=== PATIENT | male | born 1985 | race Caucasian/White ===

== ENCOUNTER 2020-10-23 17:08 | Inpatient (IN) | payer MEDICAID, SELFPAY ==
[~2020-10-23] VITALS: Ht 175.3 cm; Wt 126.6 kg
[2020-10-23] MEDS: KCL 20 mEq in NS 1000 mL 1,000 ML IV SCH (01:00)
[2020-10-23] MEDS: PIPERACILLIN/TAZO 4.5GM/DEX-IS 100 ML IV SCH (01:00)
[2020-10-23 17:11] VITALS: BP_SYST 123
[2020-10-23 19:09] LABS: BASOPHILS # (AUTO) 0.1 K/uL (0.0-0.2); BASOPHILS % (AUTO) 0.8 % (0.0-2.0); EOSINOPHILS # (AUTO) 0.1 K/uL (0.0-0.4); EOSINOPHILS % (AUTO) 0.9 % (0.0-4.0); HEMATOCRIT 42.7 % (36-54); HEMOGLOBIN 14.2 g/dL (14.0-18.0); LYMPHOCYTES # (AUTO) 1.6 K/uL (1.0-5.5); LYMPHOCYTES % (AUTO) 15.7 % (20.5-51.5); MEAN CORPUSCULAR HEMOGLOBIN 29 pg (27-31); MEAN CORPUSCULAR HGB CONC 33 % (32-36); MEAN CORPUSCULAR VOLUME 86 fL (79.0-98.0); MONOCYTES # (AUTO) 0.4 K/uL (0.0-1.0); MONOCYTES % (AUTO) 3.5 % (1.7-9.3); NEUTROPHILS # (AUTO) 7.9 K/uL (1.8-7.7); NEUTROPHILS % (AUTO) 79.1 % (40.0-70.0); PLATELET COUNT (AUTO) 232 K/uL (130-430); RED BLOOD CELL COUNT(AUTO) 4.96 MIL/uL (4.2-6.2); RED CELL DISTRIBUTION WIDTH 13.8 % (9.0-15.0)
[2020-10-23 19:24] LABS: ANION GAP 7 (5-15); CALCIUM 8.5 mg/dL (8.4-11.0); CHLORIDE 99 mmol/L (98-107); CREATININE 0.81 mg/dL (0.55-1.30); GLUCOSE 92 mg/dL (70-99); SODIUM SERUM 133 mmol/L (136-145); UREA NITROGEN, BLOOD 13 mg/dL (8-21)
[2020-10-23 19:30] LABS: GFR AFRICAN AMERICAN 138 mL/min (>90)
[2020-10-23] MEDS ORDERED: POTASSIUM CHLORIDE 20 MEQ/PKT PACKET PO ONE (19:30)
[2020-10-23 19:36] LABS: ALANINE AMINOTRANSFERASE 40 U/L (12-78); ALBUMIN 2.8 g/dL (3.4-4.8); ASPARTATE AMINOTRANSFERASE 44 U/L (10-37); LACTATE DEHYDROGENASE 425 U/L (85-227); TOTAL BILIRUBIN 0.7 mg/dL (0.0-1.0)
[2020-10-23 19:48] LABS: POTASSIUM 2.7 mmol/L (3.5-5.1)
[2020-10-23 20:54] LABS: C-REACTIVE PROTEIN QUANT 23.9 mg/dL (0-0.5)
[2020-10-23] MEDS ORDERED: METF1000 PO (21:50)
[2020-10-23] MEDS ORDERED: ASPI-1393 PO (21:51)
[2020-10-23] MEDS ORDERED: OMEP20CA15 PO (21:51)
[2020-10-23] MEDS ORDERED: FURO-149 PO (21:51)
[2020-10-23] MEDS ORDERED: ALBUTEROL MDI INHALATION 8 GM INH INH PRN (22:45)
[2020-10-23] MEDS ORDERED: ACETAMINOPHEN 325 MG TABLET PO PRN (22:45)
[2020-10-23] MEDS: ASCORBIC ACID 500 MG TABLET PO SCH (22:45)
[2020-10-23 23:12] VITALS: BP_SYST 126
[2020-10-24] VITALS: BP_SYST 114
[2020-10-24] MEDS ORDERED: KCL 20 mEq in NS 1000 mL 1,000 ML IV ONE (00:43)
[2020-10-24] MEDS ORDERED: PIPERACILLIN/TAZOBACTAM 4.5 GM/VIAL (ZOSYN) IV ONE (00:43)
[2020-10-24] MEDS: DEXAMETHASONE SOD PHOSPHATE 10 MG/ML VIAL IVP SCH ×2 (04:35→22:33)
[2020-10-24 04:43] VITALS: BP_SYST 116
[2020-10-24] MEDS: PIPERACILLIN/TAZO 4.5GM/DEX-IS 100 ML IV SCH ×2 (06:06→13:55)
[2020-10-24 07:06] LABS: BASOPHILS % (AUTO) 0.6 % (0.0-2.0); EOSINOPHILS % (AUTO) 0.6 % (0.0-4.0); HEMATOCRIT 39.7 % (36-54); HEMOGLOBIN 13.3 g/dL (14.0-18.0); LYMPHOCYTES # (AUTO) 0.8 K/uL (1.0-5.5); LYMPHOCYTES % (AUTO) 9.6 % (20.5-51.5); MEAN CORPUSCULAR HEMOGLOBIN 29 pg (27-31); MEAN CORPUSCULAR HGB CONC 34 % (32-36); MEAN CORPUSCULAR VOLUME 86 fL (79.0-98.0); MONOCYTES # (AUTO) 0.3 K/uL (0.0-1.0); MONOCYTES % (AUTO) 3.4 % (1.7-9.3); NEUTROPHILS # (AUTO) 6.8 K/uL (1.8-7.7); NEUTROPHILS % (AUTO) 85.8 % (40.0-70.0); PLATELET COUNT (AUTO) 254 K/uL (130-430); RED BLOOD CELL COUNT(AUTO) 4.61 MIL/uL (4.2-6.2); RED CELL DISTRIBUTION WIDTH 13.7 % (9.0-15.0)
[2020-10-24 08:18] LABS: CALCIUM 8.3 mg/dL (8.4-11.0); CREATININE 0.91 mg/dL (0.55-1.30); POTASSIUM 3.6 mmol/L (3.5-5.1)
[2020-10-24] MEDS: ASCORBIC ACID 500 MG TABLET PO SCH ×2 (08:38→22:32)
[2020-10-24] MEDS: ASPIRIN 81 MG TABLET(ECOTRIN) PO SCH (08:39)
[2020-10-24] MEDS: metFORMIN HCL 500 MG TABLET PO SCH ×2 (08:39→17:10)
[2020-10-24] MEDS: PANTOPRAZOLE SODIUM 40 MG TAB PO SCH (08:39)
[2020-10-24 08:45] VITALS: BP_SYST 103
[2020-10-24] MEDS: CHOLECALCIFEROL (VITAMIN D3) 5,000 UNIT TABLET PO SCH (09:40)
[2020-10-24] MEDS: INSULIN REGULAR, HUMAN 100 UNITS/ML, 10 ML VIAL (humuLIN R) SUBCUT PRN (11:44)
[2020-10-24 11:46] VITALS: BP_SYST 117
[2020-10-24] MEDS: KCL 20 mEq in NS 1000 mL 1,000 ML IV SCH (13:55)
[2020-10-24] MEDS ORDERED: ALBUTEROL MDI INHALATION 8 GM INH INH PRN (14:15)
[2020-10-24 16:22] VITALS: BP_SYST 99
[2020-10-24 20:00] VITALS: BP_SYST 125
[2020-10-24] MEDS ORDERED: ENOXAPARIN SODIUM 40 MG/0.4 ML SYRINGE SUBCUT SCH (21:00)
[2020-10-24] MEDS ORDERED: AZITHROMYCIN 500 MG/VIAL (ZITHROMAX) IV ONE (21:39)
[2020-10-24] MEDS ORDERED: cefTRIAXone 1 GM IVPB PREMIX 50 ML IV ONE (21:40)
[2020-10-24] MEDS: cefTRIAXone 1 GM in D5W 50 ML IV SCH (22:32)
[2020-10-24] MEDS: ENOXAPARIN SODIUM 40 MG/0.4 ML SYRINGE SUBCUT SCH (22:42)
[2020-10-25] VITALS: BP_SYST 108
[2020-10-25] MEDS: KCL 20 mEq in NS 1000 mL 1,000 ML IV SCH ×3 (00:02→17:38)
[2020-10-25] MEDS: AZITHROMYCIN 500 MG in NS 250 ML IV SCH ×2 (00:03→22:09)
[2020-10-25] MEDS ORDERED: TEMAZEPAM 15 MG CAPSULE ONE (00:17)
[2020-10-25] MEDS: TEMAZEPAM 15 MG CAPSULE PO PRN (00:19)
[2020-10-25 08:45] LABS: BASOPHILS % (AUTO) 0.5 % (0.0-2.0); HEMOGLOBIN 12.9 g/dL (14.0-18.0); LYMPHOCYTES # (AUTO) 0.9 K/uL (1.0-5.5); LYMPHOCYTES % (AUTO) 11.1 % (20.5-51.5); MEAN CORPUSCULAR HEMOGLOBIN 29 pg (27-31); MEAN CORPUSCULAR HGB CONC 33 % (32-36); MEAN CORPUSCULAR VOLUME 86 fL (79.0-98.0); MONOCYTES # (AUTO) 0.7 K/uL (0.0-1.0); MONOCYTES % (AUTO) 7.8 % (1.7-9.3); NEUTROPHILS # (AUTO) 6.7 K/uL (1.8-7.7); NEUTROPHILS % (AUTO) 80.6 % (40.0-70.0); PLATELET COUNT (AUTO) 317 K/uL (130-430); RED BLOOD CELL COUNT(AUTO) 4.52 MIL/uL (4.2-6.2); RED CELL DISTRIBUTION WIDTH 13.7 % (9.0-15.0); WHITE BLOOD COUNT (AUTO) 8.4 K/uL (4.8-10.8)
[2020-10-25] MEDS: ASPIRIN 81 MG TABLET(ECOTRIN) PO SCH (09:13)
[2020-10-25] MEDS: PANTOPRAZOLE SODIUM 40 MG TAB PO SCH (09:13)
[2020-10-25] MEDS: metFORMIN HCL 500 MG TABLET PO SCH ×2 (09:13→17:34)
[2020-10-25] MEDS: CHOLECALCIFEROL (VITAMIN D3) 5,000 UNIT TABLET PO SCH (09:13)
[2020-10-25] MEDS: ENOXAPARIN SODIUM 40 MG/0.4 ML SYRINGE SUBCUT SCH ×2 (09:17→22:11)
[2020-10-25] MEDS: ASCORBIC ACID 500 MG TABLET PO SCH ×2 (09:21→22:09)
[2020-10-25 09:26] LABS: CALCIUM 8.4 mg/dL (8.4-11.0); CREATININE 0.7 mg/dL (0.55-1.30); POTASSIUM 3.9 mmol/L (3.5-5.1)
[2020-10-25 09:37] VITALS: BP_SYST 128
[2020-10-25 10:07] LABS: C-REACTIVE PROTEIN QUANT 7.2 mg/dL (0-0.5)
[2020-10-25] MEDS: INSULIN REGULAR, HUMAN 100 UNITS/ML, 10 ML VIAL (humuLIN R) SUBCUT PRN (11:42)
[2020-10-25 11:44] VITALS: BP_SYST 119
[2020-10-25] MEDS: guaiFENesin 200 MG/10 ML UDC PO PRN (12:30)
[2020-10-25 16:00] VITALS: BP_SYST 139
[2020-10-25] MEDS: cefTRIAXone 1 GM in D5W 50 ML IV SCH (22:09)
[2020-10-25] MEDS: DEXAMETHASONE SOD PHOSPHATE 10 MG/ML VIAL IVP SCH (22:11)
[2020-10-25 22:30] VITALS: BP_SYST 112
[2020-10-26 00:19] VITALS: BP_SYST 109
[2020-10-26] MEDS: KCL 20 mEq in NS 1000 mL 1,000 ML IV SCH ×3 (02:37→20:30)
[2020-10-26] MEDS: INSULIN REGULAR, HUMAN 100 UNITS/ML, 10 ML VIAL (humuLIN R) SUBCUT PRN (06:19)
[2020-10-26] MEDS: PANTOPRAZOLE SODIUM 40 MG TAB PO SCH (08:10)
[2020-10-26] MEDS: metFORMIN HCL 500 MG TABLET PO SCH ×2 (08:10→17:03)
[2020-10-26] MEDS: ASPIRIN 81 MG TABLET(ECOTRIN) PO SCH (08:10)
[2020-10-26] MEDS: CHOLECALCIFEROL (VITAMIN D3) 5,000 UNIT TABLET PO SCH (08:10)
[2020-10-26] MEDS: ASCORBIC ACID 500 MG TABLET PO SCH ×2 (08:11→21:00)
[2020-10-26] MEDS: ENOXAPARIN SODIUM 40 MG/0.4 ML SYRINGE SUBCUT SCH ×2 (08:12→21:00)
[2020-10-26 08:26] VITALS: BP_SYST 123
[2020-10-26] MEDS: guaiFENesin 200 MG/10 ML UDC PO PRN ×2 (09:13→22:30)
[2020-10-26 10:25] LABS: BASOPHILS % (AUTO) 0.2 % (0.0-2.0); HEMATOCRIT 40.2 % (36-54); LYMPHOCYTES # (AUTO) 1.1 K/uL (1.0-5.5); LYMPHOCYTES % (AUTO) 12.5 % (20.5-51.5); MEAN CORPUSCULAR HEMOGLOBIN 29 pg (27-31); MEAN CORPUSCULAR HGB CONC 32 % (32-36); MEAN CORPUSCULAR VOLUME 88 fL (79.0-98.0); MONOCYTES # (AUTO) 0.6 K/uL (0.0-1.0); MONOCYTES % (AUTO) 7.4 % (1.7-9.3); NEUTROPHILS # (AUTO) 6.9 K/uL (1.8-7.7); NEUTROPHILS % (AUTO) 79.9 % (40.0-70.0); PLATELET COUNT (AUTO) 361 K/uL (130-430); RED BLOOD CELL COUNT(AUTO) 4.56 MIL/uL (4.2-6.2); RED CELL DISTRIBUTION WIDTH 13.7 % (9.0-15.0); WHITE BLOOD COUNT (AUTO) 8.6 K/uL (4.8-10.8)
[2020-10-26 10:32] LABS: CALCIUM 8.4 mg/dL (8.4-11.0); CREATININE 0.78 mg/dL (0.55-1.30); POTASSIUM 4.2 mmol/L (3.5-5.1)
[2020-10-26 12:12] VITALS: BP_SYST 111
[2020-10-26 17:05] VITALS: BP_SYST 122
[2020-10-26 19:50] VITALS: BP_SYST 123
[2020-10-26] MEDS: cefTRIAXone 1 GM in D5W 50 ML IV SCH (21:00)
[2020-10-26] MEDS: AZITHROMYCIN 500 MG in NS 250 ML IV SCH (21:00)
[2020-10-26] MEDS ORDERED: TEMAZEPAM 15 MG CAPSULE ONE (22:03)
[2020-10-26] MEDS: TEMAZEPAM 15 MG CAPSULE PO PRN (22:30)
[2020-10-26] MEDS: DEXAMETHASONE SOD PHOSPHATE 10 MG/ML VIAL IVP SCH (23:44)
[2020-10-27] MEDS: KCL 20 mEq in NS 1000 mL 1,000 ML IV SCH ×2 (06:47→15:59)
[2020-10-27 08:00] VITALS: BP_SYST 125
[2020-10-27] MEDS: ASCORBIC ACID 500 MG TABLET PO SCH ×2 (08:41→21:28)
[2020-10-27] MEDS: ENOXAPARIN SODIUM 40 MG/0.4 ML SYRINGE SUBCUT SCH ×2 (08:41→21:40)
[2020-10-27] MEDS: CHOLECALCIFEROL (VITAMIN D3) 5,000 UNIT TABLET PO SCH (08:41)
[2020-10-27] MEDS: PANTOPRAZOLE SODIUM 40 MG TAB PO SCH (08:41)
[2020-10-27] MEDS: metFORMIN HCL 500 MG TABLET PO SCH ×2 (08:41→17:18)
[2020-10-27] MEDS: ASPIRIN 81 MG TABLET(ECOTRIN) PO SCH (08:41)
[2020-10-27 10:28] VITALS: BP_SYST 125
[2020-10-27 12:03] LABS: POTASSIUM 4.1 mmol/L (3.5-5.1)
[2020-10-27 12:04] LABS: ALBUMIN 2.6 g/dL (3.4-4.8); CALCIUM 8.1 mg/dL (8.4-11.0); CREATININE 0.86 mg/dL (0.55-1.30); TOTAL BILIRUBIN 0.4 mg/dL (0.0-1.0)
[2020-10-27 12:06] VITALS: BP_SYST 126
[2020-10-27 16:07] VITALS: BP_SYST 126
[2020-10-27 20:15] VITALS: BP_SYST 109
[2020-10-27] MEDS: cefTRIAXone 1 GM in D5W 50 ML IV SCH (21:28)
[2020-10-27] MEDS: DEXAMETHASONE SOD PHOSPHATE 10 MG/ML VIAL IVP SCH (21:45)
[2020-10-27] MEDS: AZITHROMYCIN 500 MG in NS 250 ML IV SCH (22:02)
[2020-10-27 23:40] VITALS: BP_SYST 117
[2020-10-28] MEDS: KCL 20 mEq in NS 1000 mL 1,000 ML IV SCH ×3 (02:08→23:30)
[2020-10-28 08:00] VITALS: BP_SYST 120
[2020-10-28] MEDS: CHOLECALCIFEROL (VITAMIN D3) 5,000 UNIT TABLET PO SCH (09:36)
[2020-10-28] MEDS: PANTOPRAZOLE SODIUM 40 MG TAB PO SCH (09:36)
[2020-10-28] MEDS: ASCORBIC ACID 500 MG TABLET PO SCH ×2 (09:36→20:30)
[2020-10-28] MEDS: metFORMIN HCL 500 MG TABLET PO SCH ×2 (09:37→18:14)
[2020-10-28] MEDS: ASPIRIN 81 MG TABLET(ECOTRIN) PO SCH (09:37)
[2020-10-28] MEDS: ENOXAPARIN SODIUM 40 MG/0.4 ML SYRINGE SUBCUT SCH ×2 (09:38→20:45)
[2020-10-28 12:00] VITALS: BP_SYST 102
[2020-10-28 18:48] VITALS: BP_SYST 110
[2020-10-28 20:15] VITALS: BP_SYST 118
[2020-10-28] MEDS: cefTRIAXone 1 GM in D5W 50 ML IV SCH (20:20)
[2020-10-28] MEDS: AZITHROMYCIN 500 MG in NS 250 ML IV SCH (20:50)
[2020-10-28] MEDS: DEXAMETHASONE SOD PHOSPHATE 10 MG/ML VIAL IVP SCH (23:30)
[2020-10-29 00:15] VITALS: BP_SYST 109
[2020-10-29 08:00] VITALS: BP_SYST 130
[2020-10-29] MEDS: metFORMIN HCL 500 MG TABLET PO SCH ×2 (08:00→17:41)
[2020-10-29] MEDS: KCL 20 mEq in NS 1000 mL 1,000 ML IV SCH (08:30)
[2020-10-29] MEDS: ASPIRIN 81 MG TABLET(ECOTRIN) PO SCH (09:45)
[2020-10-29] MEDS: CHOLECALCIFEROL (VITAMIN D3) 5,000 UNIT TABLET PO SCH (09:45)
[2020-10-29] MEDS: ASCORBIC ACID 500 MG TABLET PO SCH (09:45)
[2020-10-29] MEDS: PANTOPRAZOLE SODIUM 40 MG TAB PO SCH (09:45)
[2020-10-29] MEDS: ENOXAPARIN SODIUM 40 MG/0.4 ML SYRINGE SUBCUT SCH (09:56)
[2020-10-29 12:00] VITALS: BP_SYST 111
[2020-10-29 16:00] VITALS: BP_SYST 100
[2020-10-29 18:16] VITALS: BP_SYST 100
== END 2020-10-29 20:00 | disposition home or self-care (01) | DRG 137 ==
LOC: SED 17:08 → STU 22:17
PROVIDERS: ADMIT Family Medicine; ATTEND Family Medicine
DX: U07.1 COVID-19 (principal); J12.89 Other viral pneumonia; E87.6 Hypokalemia; E11.9 Type 2 diabetes mellitus without complications; E66.9 Obesity, unspecified; J45.909 Unspecified asthma, uncomplicated; R09.02 Hypoxemia; Z68.41 Body mass index [BMI] 40.0-44.9, adult; E43 Unspecified severe protein-calorie malnutrition
CPT/HCPCS: 36415; 71045; 80048; 80053; 82728; 82962; 83615-TC; 83735-TC; 84484; 85025; 85379; 86140; 86886; 86900; 86901; 93005; 94640; 99285; G0378; J0456; J0696; J1100; J1650; J1815; J2543; J3480; J7050; J7060